=== PATIENT | male | born 1955 | race Caucasian/White ===

== ENCOUNTER 2023-03-30 06:31 | Day surgery (SDC) | payer MEDICARE ==
[~2023-03-30] VITALS: Ht 172.7 cm; Wt 90.7 kg
[~2023-03-30 06:31] MED LIST: LIPITOR20 MG PO; LISINOPRIL40 MG PO; METFORMIN HCL500 M2 PO; METOPROLOL SUC100 MG PO; NORVASC5 MG PO
[2023-03-30 06:51] VITALS: BP 122/61
--- NOTE | 2023-03-31 07:27 | OR ---
[facility] [address] [place], [place] [address] Signed DATE OF OPERATION: 03/30/2023 SURGEON: Lidia Rodriguez MD PREOPERATIVE DIAGNOSIS: Screening. POSTOPERATIVE DIAGNOSES: 1. Minimal external hemorrhoids. 2. Enlarged prostate gland, left greater than right. 3. A 4 mm polyps x2 at proximal right colon. PROCEDURE: Colonoscopy with hot biopsy. ESTIMATED BLOOD LOSS: None. INDICATIONS: Vidal is a 67-year-old gentleman, who presents for his initial screening colonoscopy. He is now retired. He and his both read and speak Spanish very well. His is in the medical field and she is very familiar with colonoscopy. He said he has no lower GI complaints. There is no family history of colon cancer or polyps. In the office, I gave him a pamphlet on colonoscopy. We reviewed that together. There is risk including, but not limited to gas bloating, crampy abdominal pain, bleeding, perforation requiring surgery, and missed diagnosis. We also reviewed the written instructions for a bowel prep line by line. They understand the need for IV conscious sedation. His will be taking him home afterwards. They had expressed understanding and wished to proceed. DESCRIPTION OF PROCEDURE: Vidal was taken into our endoscopy suite and placed in the left lateral decubitus position. He was given 6 mg of Versed and 125 mcg of fentanyl to cover the case. A digital rectal exam was performed and he has minimal external hemorrhoids. He has good sphincter tone. His prostate was moderately enlarged, the left greater than the right, it is moderately indurated. The adult colonoscope was introduced and advanced under direct visualization of camera up into the cecum without difficulty. His prep was quite excellent. We could easily see the appendiceal orifice and ileocecal valve. The scope was then slowly withdrawn. He had two tiny 4 mm polyps in the proximal right colon. They were easily removed with a hot biopsy forceps and placed into the same specimen Electronically Signed By: LIDIA RODRIGUEZ MD 03/31/23 0727 PATIENT NAME: VIDAL CROSS OPERATIVE REPORT DATE OF : 57 REPORT #: [id number] PHYSICIAN: LIDIA RODRIGUEZ MD PCP: PRINCESS JUAREZ PA-C REPORT IS CONFIDENTIAL AND NOT TO BE RELEASED WITHOUT AUTHORIZATION [address] [address] Signed jar. The rest of the colon was unremarkable. There was no diverticulosis. The rectum was unremarkable. Upon retroflexion of scope, there was no additional pathology noted above the anal canal. After this, the gas was suctioned out, colonoscope removed. Vidal tolerated the procedure quite well. RECOMMENDATIONS: I will see Vidal back in my office in 7 to 14 days to review his results. Lidia Rodriguez MD ALB/MODL /[id number] cc: Princess Juarez PA-C Patient Chart Lidia Rodriguez MD Copies: PRINCESS JUAREZ PA-C, ANDREW L MD ~ Electronically Signed By: LIDIA RODRIGUEZ MD 03/31/23 0727 PATIENT NAME: RAMSEY KENVIDAL OPERATIVE REPORT DATE OF : 57 REPORT #: [id number] PHYSICIAN: LIDIA RODRIGUEZ MD PCP: PRINCESS JUAREZ PA-C REPORT IS CONFIDENTIAL AND NOT TO BE RELEASED WITHOUT AUTHORIZATION
--- NOTE | 2023-03-31 12:55 | PATH ---
[facility] [address] [place], [place] [address] Signed SPECIMEN(S): A ASCENDING PROXIMAL COLON POLYP SPECIMEN SOURCE: A. ASCENDING PROXIMAL COLON POLYP CLINICAL HISTORY: Initial screening colonoscopy. FINAL PATHOLOGIC DIAGNOSIS: Ascending proximal colon polyp: - Tubular adenoma (two fragments). JVR:[facility] MICROSCOPIC EXAMINATION: Histologic sections of all submitted blocks are examined by light microscopy. These findings, together with the gross examination, support the pathologic diagnosis. GROSS DESCRIPTION: A. The specimen, labeled and designated "Aneesh Causey, proximal ascending/right colon polypectomy," is received in formalin and consists of 2 edward soft polypoid tissue fragments measuring 0.2 to 0.3 cm x 0.4 cm and submitted entirely in (A1). MMA (under the direct supervision of a pathologist) The Gross Description was prepared using a voice recognition system. The report was reviewed for accuracy; however, sound-alike word errors, addition and/or deletions may occur. If there is any question about this report, please contact Client Services. PERFORMING LABORATORY: Technical component was performed by [facility], [address] [place] [address] (CLIA# [id number]). Professional interpretation was performed by [facility] - [facility], [address] [place] [id number] (CLIA#: [id number]). Diagnostician: Carter Rodriguez MD Pathologist Electronically Signed 03/31/2023 Copies: PATIENT NAME: BENNY CAUSEY PATHOLOGY DATE OF : 57 REPORT #: [id number] PHYSICIAN: [facility] PCP: DUNCAN WALTON PA-C REPORT IS CONFIDENTIAL AND NOT TO BE RELEASED WITHOUT AUTHORIZATION [address] [address] Signed ~ PATIENT NAME: BENNY CAUSEY PATHOLOGY DATE OF : 57 REPORT #: [id number] PHYSICIAN: [facility] PCP: DUNCAN WALTON PA-C REPORT IS CONFIDENTIAL AND NOT TO BE RELEASED WITHOUT AUTHORIZATION
== END 2023-03-30 09:00 | disposition home or self-care (01) ==
LOC: DS 06:31 → OPS 06:31 → DS 07:30 → OPS 07:30
PROVIDERS: ATTEND Colon & Rectal Surgery
PROC: 0DBF8ZX Excision of Right Large Intestine, Via Natural or Artificial Opening Endoscopic, Diagnostic (ICD-10-PCS; principal; 2023-03-30)
DX: Z12.11 Encounter for screening for malignant neoplasm of colon (principal); D12.2 Benign neoplasm of ascending colon; K64.4 Residual hemorrhoidal skin tags; N40.0 Benign prostatic hyperplasia without lower urinary tract symptoms; E78.00 Pure hypercholesterolemia, unspecified; I10 Essential (primary) hypertension; E11.9 Type 2 diabetes mellitus without complications; E78.5 Hyperlipidemia, unspecified; Z79.84 Long term (current) use of oral hypoglycemic drugs; Z79.899 Other long term (current) drug therapy
CPT/HCPCS: J7121